=== PATIENT | male | born 1960 | race Caucasian/White ===

== ENCOUNTER 2016-05-28 05:08 | Inpatient (IN) | payer OTHER ==
[~2016-05-28] VITALS: Ht 172.7 cm; Wt 83.0 kg
[2016-05-28] VITALS (13 sets, daily range): BP systolic 113–139; BP diastolic 68–89
[2016-05-28] MEDS ORDERED: ALEVE220 MG PO (06:02)
[2016-05-28] MEDS ORDERED: Thrombin 5000 units TOPIC ONE (06:50)
[2016-05-28] MEDS ORDERED: Surgicel 4in x 8in TOPIC ONE (06:50)
[2016-05-28] MEDS ORDERED: Bupivacaine w/Epi 0.5% 30ml Vial INJ ONE (06:51)
[2016-05-28] MEDS ORDERED: Bacitracin 50000 Units Vial ONE (06:51)
[2016-05-28] MEDS ORDERED: LR 1000ml 1,000 ML IVLG SCH (06:56)
--- NOTE | 2016-05-28 06:56 | Anethesia Preoperative Eval ---
Anesthesia Pre-op PMH/ROS General Date of Evaluation: May 28, 2016 Time of Evaluation: 06:56 Anesthesiologist: Abbie ASA Score: ASA 1 Mallampati Score Class I : Soft palate, uvula, fauces, pillars visible Class II: Soft palate, uvula, fauces visible Class III: Soft palate, base of uvula visible Class IV: Only hard plate visible Mallampati Classification: Class II Surgeon: Marely Diagnosis: Neck Pain Surgical Procedure: ACDF C5-6, C6-7 Anesthesia History: none Family History: no anesthesia problems Allergies: Coded Allergies: No Known Allergies (Unverified , 05/28/16) Medications: see eMAR Past Medical History Musculoskeletal/Integumentary: Reports: DDD Anesthesia Pre-op Phys. Exam Physician Exam Last Vital Signs Date Time Temp Pulse Resp B/P Pulse Ox O2 Delivery O2 Flow Rate FiO2 05/28/16 05:52 97.2 65 18 116/74 96 Nasal Cannula Constitutional: NAD Neurologic: CN 2-12 intact Cardiovascular: RRR Respiratory: CTA Gastrointestinal: S/NT/ND Airway Exam Mallampati Score: Class II MO: full ROM: limited Teeth: intact Anesthesia Pre-op A/P Risk Assessment & Plan Assessment: ASA 1 Plan: GA, BIS, Glidescope Pre-Antibiotics Dru Grams Ancef IV Given Within 1 Hr of Incision: Yes Time Given: 07:16 James Leiva MD May 28, 2016 06:56
[2016-05-28] MEDS ORDERED: fentaNYL 100 mcg/2 mL IV ONE (07:00)
[2016-05-28] MEDS ORDERED: Lidocaine 1% Plain 30 ml INJ ONE (07:00)
[2016-05-28] MEDS ORDERED: Zemuron 50mg/5ml Inj IV ONE (07:00)
[2016-05-28] MEDS ORDERED: NS Irrig 1000ml ONE (07:00)
[2016-05-28] MEDS ORDERED: fentaNYL 250mcg/5ml ONE (07:00)
[2016-05-28] MEDS ORDERED: Norco 7.5mg/325mg tab ORAL PRN (07:00)
[2016-05-28] MEDS ORDERED: Sterile Water Irrig 1000ml IRRIG ONE (07:00)
[2016-05-28] MEDS ORDERED: Ketorolac 30mg Inj IV PRN (07:00)
[2016-05-28] MEDS ORDERED: Midazolam 2mg/2ml Inj ONE (07:00)
[2016-05-28] MEDS ORDERED: Oxycodone/Acetaminophen 5-325 ORAL PRN (07:00)
[2016-05-28] MEDS ORDERED: LORazepam Inj 2mg/ml 1ml IV PRN (07:00)
[2016-05-28] MEDS ORDERED: Glycopyrrolate 0.2mg/ml 1ml Vial ONE (07:00)
[2016-05-28] MEDS ORDERED: Ketorolac 60mg Inj IV PRN (07:00)
[2016-05-28] MEDS ORDERED: Meperidine 25mg/ml Inj IV PRN (07:00)
[2016-05-28] MEDS ORDERED: Propofol 10mg/ml 100ml btl IV ONE (07:00)
[2016-05-28] MEDS ORDERED: Hydromorphone 0.5mg/0.5ml inj IVP PRN (07:00)
[2016-05-28] MEDS ORDERED: Labetalol 5mg/ml 20ml vial IV PRN (07:00)
[2016-05-28] MEDS ORDERED: Metoclopramide 10mg/2ml Inj IVP PRN (07:00)
[2016-05-28] MEDS ORDERED: Midazolam 2mg/2ml Inj IVP PRN (07:00)
[2016-05-28] MEDS ORDERED: fentaNYL 100 mcg/2 mL IV PRN (07:00)
[2016-05-28] MEDS ORDERED: DiphenhydrAMINE 50mg/ml Inj IVP PRN ×2 (07:00→09:30)
[2016-05-28] MEDS ORDERED: Atropine Inj 1mg/10ml Syr IV PRN (07:00)
[2016-05-28] MEDS ORDERED: Dexamethasone 4mg/ml vial ONE (07:00)
[2016-05-28] MEDS ORDERED: LR 1000ml ONE (07:00)
[2016-05-28] MEDS ORDERED: Norco 5mg/325mg tab ORAL PRN (07:00)
[2016-05-28] MEDS ORDERED: Neostigmine 1mg/ml 10ml Inj ONE (07:00)
--- NOTE | 2016-05-28 07:03 | Pre-Procedure Note/Attestation ---
Pre-Procedure Note/Attestation Complete Prior to Procedure Planned Procedure: not applicable Procedure Narrative: C5-6, C6-7 ACDF Indications for Procedure Pre-Operative Diagnosis: Disc Degeneration, pain and instability at C5-6 and C6-7. Attestation I attest that I discussed the nature of the procedure; its benefits; risks and complications; and alternatives (and the risks and benefits of such alternatives ), prior to the procedure, with the patient (or the patient's legal indirect sales representative). I attest that, if there was a reasonable possibility of needing a blood transfusion, the patient (or the patient's legal indirect sales representative) was given the [place] [facility] [employer] [facility] standardized written summary, pursuant to the [place] Blood Safety Act ([place] Health and Safety Code # 1645, as amended). I attest that I re-evaluated the patient just prior to the surgery and that there has been no change in the patient's H&P, except as documented below: INDRA RAMIREZ May 28, 2016 07:02
--- NOTE | 2016-05-28 08:00 | Immediate Post-Op Evaluation ---
Immediate Post-Op Evalulation Immediate Post-Op Evalulation Procedure: ACDF C5-6, C6-7 Date of Evaluation: May 28, 2016 Time of Evaluation: 09:46 IV Fluids: 1000 LR Blood Products: 0 Estimated Blood Loss: 75 Urinary Output: 0 Blood Pressure Systolic: 139 Blood Pressure Diastolic: 88 Pulse Rate: 66 Respiratory Rate: 16 O2 Sat by Pulse Oximetry: 97 Temperature (Fahrenheit): 97.2 Pain Score (1-10): 3 Nausea: No Vomiting: No Complications 0 Patient Status: awake, reacts, patent, extubated, none Hydration Status: adequate Dru Grams Ancef IV Given Within 1 Hr of Incision: Yes Time Given: 07:16 James Leiva MD May 28, 2016 08:00
[2016-05-28] MEDS ORDERED: Morphine Sulfate 2mg/ml Inj IVP PRN (09:30)
[2016-05-28] MEDS ORDERED: Morphine Sulfate 4mg/ml Inj SUBQ PRN (09:30)
[2016-05-28] MEDS ORDERED: Rate Change PCA 1 Each MISC PRN (09:30)
[2016-05-28] MEDS ORDERED: Naloxone 0.4mg/ml Inj IVP PRN (09:30)
[2016-05-28] MEDS ORDERED: LORazepam 1mg tab ORAL PRN (09:30)
--- NOTE | 2016-05-28 09:39 | Operative Note - PDOC ---
Operative Note Operative Note Pre-op Diagnosis: Degenerative Disc Disease C5-6, C6-7 Procedure: ACDF C5-5, C6-7 Post-op Diagnosis: same as pre-op Operative Findings: consistent w/pre-op dx studies Surgeon: Marely Steamfitter Supervisor: KALIE De Santiago Anesthesiologist: Bora Meier Anesthesia: general Specimen: none Complications: none Condition: stable Estimated Blood Loss: minimal Drains: none Implant(s) used?: Yes - Medtronic Zevo Plate, 6 15mm screws, 6mm aand 7mm bank bone graft. INDRA DE SANTIAGO May 28, 2016 09:39
[2016-05-28] MEDS ORDERED: Acetaminophen (Non formulary) 1,000 MG/100 ML ML IV ONE (09:45)
[2016-05-28] MEDS ORDERED: Acetaminophen 650 MG SUPP RECTAL PRN (09:45)
[2016-05-28] MEDS ORDERED: Hydromorphone 0.5mg/0.5ml inj ONE (10:06)
[2016-05-28] MEDS: PCA HYDROmorphone 1mg/ml 30 ML IV PRN (10:32)
--- NOTE | 2016-05-28 13:49 | Diagnostic Imaging Report ---
Indication: Back pain Comparison: None Findings: Fluoroscopic views of the lumbar spine were obtained. Cervical spine images showing anterior compression plate at C5-6 and 7. Impression: Intraoperative imaging
[2016-05-28] MEDS: PCA shift volume MISC SCH ×2 (15:00→23:00)
[2016-05-28] MEDS: ceFAZolin sod 1 GM in D5W 55 ML IV SCH (16:14)
[2016-05-29] MEDS: ceFAZolin sod 1 GM in D5W 55 ML IV SCH ×2 (00:41→07:47)
[2016-05-29 04:00] VITALS: BP 113/72
[2016-05-29] MEDS: PCA shift volume MISC SCH ×3 (07:00→23:00)
[2016-05-29 08:10] VITALS: BP 119/71
[2016-05-29] MEDS: PCA HYDROmorphone 1mg/ml 30 ML IV PRN (09:53)
--- NOTE | 2016-05-29 09:58 | 48 Hour Post Anesthesia Eval ---
Post Anesthesia Evaluation Procedure: ACDF C5-6, C6-7 Date of Evaluation: May 29, 2016 Time of Evaluation: 10:00 Blood Pressure Systolic: 119 0: 71 Pulse Rate: 75 Respiratory Rate: 21 Temperature (Fahrenheit): 97.9 O2 Sat by Pulse Oximetry: 97 Airway: patent Nausea: No Vomiting: No Pain Intensity: 1 Hydration Status: adequate Cardiopulmonary Status: Stable Mental Status/LOC: patient returned to baseline Follow-up Care/Observations: As per surgery Post-Anesthesia Complications: No anesthetic complication Follow-up care needed: N/A ARMOND GIBBS M.D. May 29, 2016 09:58
[2016-05-29 12:01] VITALS: BP 114/68
[2016-05-29 16:18] VITALS: BP 123/81
[2016-05-29 20:00] VITALS: BP 112/59
[2016-05-30 00:46] VITALS: BP 123/68
[2016-05-30 04:00] VITALS: BP 106/64
[2016-05-30] MEDS: PCA shift volume MISC SCH (06:55)
[2016-05-30 08:00] VITALS: BP 115/73
[2016-05-30] MEDS ORDERED: HYDROmorphone 1mg/ml Carpuject SUBQ PRN (09:30)
[2016-05-30] MEDS ORDERED: Norco 5mg/325mg tab ORAL PRN (09:30)
[2016-05-30] MEDS ORDERED: Naloxone 0.4mg/ml Inj IVP PRN (09:30)
[2016-05-30] MEDS ORDERED: Norco 7.5mg/325mg tab ORAL PRN ×2 (09:30)
[2016-05-30] MEDS ORDERED: HYDROmorphone 1mg/ml Carpuject IVP PRN (09:30)
--- NOTE | 2016-05-30 10:42 | General Surgery Progress Note ---
General Surgery-Progress Note Subjective Procedure Performed ACDF C5-5, C6-7 Symptoms: improved Objective Last 24 Hour Vital Signs Date Time Temp Pulse Resp B/P Pulse Ox O2 Delivery O2 Flow Rate FiO2 05/30/16 08:00 98.6 60 20 115/73 97 Nasal Cannula 2.0 05/30/16 08:00 18 05/30/16 04:00 98.2 50 18 106/64 95 Room Air 05/30/16 04:00 18 05/30/16 00:46 98.2 57 18 123/68 96 Room Air 05/30/16 00:00 16 05/29/16 20:00 18 05/29/16 20:00 99.0 58 18 112/59 97 Room Air 05/29/16 16:18 96.4 57 19 123/81 99 Room Air 05/29/16 16:00 18 05/29/16 12:01 97.9 53 20 114/68 98 Room Air 05/29/16 12:00 18 I&O Intake and Output 05/29/16 05/30/16 19:00 07:00 Intake Total 680 ml 1640 ml Output Total 800 ml 2150 ml Balance -120 ml -510 ml Intake Oral 680 ml 740 ml IV Total 900 ml Output Urine Total 800 ml 2150 ml # Voids 2 Dressing: dry Wound: clean Drains: none Additional Comments Neck wound clean and dry. tolerating full. regular diet. Instructed in collar use and fit. has post op medication and follow up appointment. Ok for discharge home today. Dr. Flores following. INDRA DE SANTIAGO May 30, 2016 10:42
[2016-05-30 12:46] VITALS: BP 122/72
--- NOTE | 2016-05-30 15:44 | History & Physical ---
History and Physical History & Physicial 2-20 HP reviewed care noted d/w RN will follow up care TANNA ROLLINS May 30, 2016 15:44
--- NOTE | 2016-05-30 15:46 | General Progress Note ---
Assessment/Plan Assessment/Plan ACDF C5-5, C6-7 Cervical disc disease PLAN 1. incentive spirometry 2. SCD 3. PT evaluation and therapy 4. Hydration 5. Pain management 6. discharge once stable with outpatient follow up Subjective Date patient seen: May 29, 2016 Allergies: Coded Allergies: No Known Allergies (Unverified , 05/28/16) Subjective post op Objective Last 24 Hour Vital Signs Date Time Temp Pulse Resp B/P Pulse Ox O2 Delivery O2 Flow Rate FiO2 05/29/16 20:00 99.0 58 18 112/59 97 Room Air 05/29/16 16:18 96.4 57 19 123/81 99 Room Air 05/29/16 16:00 18 Intake and Output Height (Feet): 5 Height (Inches): 8.00 Weight (Pounds): 183 Objective WDWN NAD clear breath sounds bilaterally without rhonchi or wheeze [id number] without MRG NABS nontender no HSM no CCE nonfocal TANNA ROLLINS May 30, 2016 15:45
--- NOTE | 2016-05-30 15:46 | General Progress Note ---
Assessment/Plan Assessment/Plan ACDF C5-5, C6-7 Cervical disc disease PLAN 1. incentive spirometry 2. dc today 3. PT evaluation and therapy 4. Hydration 5. follow up with spine Subjective Allergies: Coded Allergies: No Known Allergies (Unverified , 05/28/16) Subjective post op Objective Last 24 Hour Vital Signs Date Time Temp Pulse Resp B/P Pulse Ox O2 Delivery O2 Flow Rate FiO2 05/30/16 12:46 122/72 05/30/16 12:00 98.1 67 18 94 Nasal Cannula 3.0 05/30/16 08:00 98.6 60 20 115/73 97 Nasal Cannula 2.0 05/30/16 08:00 18 05/30/16 04:00 98.2 50 18 106/64 95 Room Air 05/30/16 04:00 18 05/30/16 00:46 98.2 57 18 123/68 96 Room Air 05/30/16 00:00 16 05/29/16 20:00 18 05/29/16 20:00 99.0 58 18 112/59 97 Room Air 05/29/16 16:18 96.4 57 19 123/81 99 Room Air 05/29/16 16:00 18 Intake and Output 05/29/16 05/30/16 19:00 07:00 Intake Total 680 ml 1640 ml Output Total 800 ml 2150 ml Balance -120 ml -510 ml Intake Oral 680 ml 740 ml IV Total 900 ml Output Urine Total 800 ml 2150 ml # Voids 2 Height (Feet): 5 Height (Inches): 8.00 Weight (Pounds): 183 Objective WDWN NAD clear breath sounds bilaterally without rhonchi or wheeze [id number] without MRG NABS nontender no HSM no CCE nonfocal TANNA ROLLINS May 30, 2016 15:46
[2016-05-30 16:00] VITALS: BP 118/69
--- NOTE | 2016-05-30 20:18 | Operative Note - Dictated ---
DATE OF OPERATION: 05/28/2016 SURGEON: Tristan Yap M.D. TOLL LINE MECHANIC: Andrew Yates ANESTHESIA: General endotracheal with arterial blood pressure monitoring by Dr. Leiva. PREOPERATIVE DIAGNOSES: Discogenic disease characterized by herniation and loss of disk height with a kyphotic deformity at the C5-C6 and C6-C7. The bulge and disk osteophyte complex causing pressure on the cord and in the foramen bilaterally most prominently at C6-C7 on the left. POSTOPERATIVE DIAGNOSES: Discogenic disease characterized by herniation and loss of disk height with a kyphotic deformity at the C5-C6 and C6-C7. The bulge and disk osteophyte complex causing pressure on the cord and in the foramen bilaterally most prominently at C6-C7 on the left. Procedure: A right anterior approach to the cervical spine with mobilization of the carotid sheath, the trachea and esophagus to expose the anterior aspect of the disk at C5-C6 and C6-C7 in the anterior annulotomy, nuclear diskectomy, partial vertebrectomy, bilateral neural foraminotomy and micro neurolysis with open reduction internal fixation using lordotic allograft and a 36 mm anterior locking plate with six 15 mm compression screws. Image intensifier was also used. The patient was induced in supine position. A bolster was placed between the shoulders and posterior to the neck. Halter traction was placed over the head with 15 pounds. The arms were tracked and tucked in order to better expose the cervical region. A marker film was taken with lateral fluoro to identify the position of the skin incision, 1.5 incision was made at C5-C6 level. The incision was carried down through skin, subcutaneous tissue, and platysma was divided in the interval between the carotid sheath and the trachea and esophagus was identified. The jugular venous plexus was identified and protected. The plane at the level of the anterior spine was then developed and the fascia over the anterior spine at C5-C6 and C6-C7 was carefully dissected with a peanut. A north-south and East-West retractor was then positioned and the marker film was taken to confirm localization of the C5-C6 and C6-C7 disks. The C5-C6 disk was approached first in the annulotomy with an 11 blade. The anterior osteophytes were then removed and the soft cartilaginous plates and disk was then removed from front to back using gradually larger to smaller straight angled Kerrison angled and straight pituitaries and a Midas with an AMA bur. Dissection was carried to the posterior edge of the vertebral body of C5-C6. The bur was used to remove the posterior osteophytes. Small curette was used to release the posterior longitudinal ligament. All disk substance was removed and portion of the uncovertebral joint was removed on the right and left in order to produce a wide foraminotomy. Normal disk height was gained and a 6 mm templated graft was positioned. Dissection was then completed at C6-C7, similarly doing an anterior annulotomy, removed the anterior osteophytes, removing cartilaginous endplate working from front to back to the posterior osteophytes into the each right and left foramen. The left foramen was relatively tight with large uncovertebral osteophytes. These were removed with a 2 mm Kerrison and the Midas exposing the exiting root and the cord. All disk substance and the remnant of the PLL was removed. The cord was fully exposed. All osteophytes of the posterior edge of the body of C6-C7 were likewise removed. The C6-C7 level was templated out to a 7 mm lordotic allograft. Both allografts were tapped into position and checked. A 36 mm anterior plate was chosen. The plate was placed temporarily with a set pin and AP and lateral position was checked. The screws were then applied through the holes anteriorly into the body of C5, C6 and C7 centering the plate in the AP direction and regaining height and lordosis in the sagittal projection. There was good fixation and good position of the plate on postoperative x-rays. The wound was copiously irrigated and it was closed in layers including platysma, subcutaneous, and skin. Blood loss was less than 50 mL. The patient was placed in a compression bandage and cervical support, returned to recovery room in good condition. Tristan Yap M.D. DR: JACOB JOB#: [id number] CC: YVAN
--- NOTE | 2016-05-31 16:02 | Discharge Summary ---
Discharge Summary Hospital Course Date of Admission May 28, 2016 at 05:08 Date of Discharge May 30, 2016 at 19:30 Admitting Diagnosis acdf HPI Ildefonso Teixeira is a 56 year old male who was admitted on May 28, 2016 at 05:08 for Degeneration,Stenosis Disc Hospital Course [id number] Discharge Discharge Disposition Patient was discharged to Home (01) Discharge Diagnoses: Cheri Nicholas NP May 31, 2016 16:02
--- NOTE | 2016-06-01 02:38 | Discharge Summary 2 SIG ---
DATE OF ADMISSION: 05/28/2016 DATE OF DISCHARGE: 05/30/2016 SURGEON: Tristan Yap M.D. BRIEF HOSPITAL COURSE: The patient is a 56-year-old male, who had injury on 03/17/2007, as a result injured his neck. He notes radiation of pain down to the left shoulder to his back and also complaining of numbness on the arms on occasions. The patient underwent following modalities for the injury including cortisone injection, physical therapy, acupuncture and pain management. However, he continued to report pain with prolonged standing, walking, and sitting and unable to sleep through the night due to pain and discomfort. On 05/28/2016, the patient underwent ACDF on C5-C6 and C6-C7. Postoperatively, he was given pain management. SCDs for DVT prophylaxis, physical therapy and was given incentive spirometry and IV hydration. Postoperatively, he had been stable and was discharged home. FINAL DIAGNOSES: Cervical disk disease status post anterior cervical discectomy and fusion on C5-C6 and C6-C7. Rasheed Flores M.D. I have been assigned to dictate discharge summary on this account and I was not involved in the patient's management. Cheri Nicholas N.P. DR: ARON JOB#: [id number] CC: YVAN
== END 2016-05-30 19:30 | disposition home or self-care (01) | DRG 473 ==
LOC: SDSOVERFLO 05:08 → 3E 11:45
PROC: 0RG20K0 Fusion of 2 or more Cervical Vertebral Joints with Nonautologous Tissue Substitute, Anterior Approach, Anterior Column, Open Approach (ICD-10-PCS; principal; 2016-05-28 07:00)
PROC: 0RT30ZZ Resection of Cervical Vertebral Disc, Open Approach (ICD-10-PCS; principal; 2016-05-28 07:00)
DX: M50.223 Other cervical disc displacement at C6-C7 level (principal)
CPT/HCPCS: 36415; 72020; 76001; 86850; 86900; 86901; 87081; 94003; 94150; J2250; J2405; J2710